=== PATIENT | female | born 1955 | race Caucasian/White ===

== ENCOUNTER → 2019-01-14 12:47 | Outpatient (CLI) | payer BC, OTHER, SELFPAY ==
--- NOTE | 2019-01-16 15:52 | PM.PFT.1 ---
Pulmonary Function Test Referral & Results Date Patient Seen: 01/14/19 Requesting provider: Rick Lezama Indication: J45.40 Results: The spirometry demonstrates an FVC of 2.83 L which is 95% of predicted. The FEV1 was measured at 2.16 L which is 94% of predicted. The FEV1/FVC ratio was 76 which is 99% of predicted. Following the administration of bronchodilator there was no appreciable change to above normal numbers. Lung volumes show an SVC of 2.74 L which is 97% of predicted. The diffusing capacity was measured at 23.93 which is 111% of predicted. The maximum voluntary ventilation was slightly reduced Interpretation: This study demonstrates normal pulmonary function
== END ==
PROVIDERS: Visit Provider Nurse Practitioner Family
DX: J45.40 Moderate persistent asthma, uncomplicated (principal); H93.11 Tinnitus, right ear
CPT/HCPCS: 94060; 94726; 94729

== ENCOUNTER → 2019-03-10 12:23 | Outpatient (CLI) | payer BC, OTHER, SELFPAY ==
--- NOTE | 2019-03-10 | DI.MG.S_ITS ---
BILATERAL DIGITAL DIAGNOSTIC MAMMOGRAM 3D/2D: 03/10/2019 CLINICAL: Left breast discomfort. Comparison is made to exams dated: 11/26/2014 localization, 11/01/2014 stereotactic biopsy, 10/27/2014 mammogram, and 10/18/2014 mammogram - [facility]. There are scattered fibroglandular elements in both breasts. There is a surgical clip in the left breast central to the nipple anterior depth. This correlates with surgery. There is architectural distortion, a post-surgical scar, and trabecular thickening associated with the surgical clip. No other significant masses, calcifications, or other findings are seen in either breast. IMPRESSION: INCOMPLETE: NEEDS ADDITIONAL IMAGING EVALUATION There is no abnormality seen in the left breast to correspond with the pain in the upper outer quadrant, however, ultrasound is recommended. This exam was interpreted at Station ID: [id number]. NOTE: For mammograms, a report in lay terms will be sent to the patient. Approximately 15% of breast malignancies will not be visualized mammographically. In the management of a palpable breast mass, a negative mammogram must not discourage biopsy of a clinically suspicious lesion. Electronically Signed By: Jaycob [email or web address]/[email or web address]:03/10/2019 13:36:04 ACR BI-RADS Category 0: Incomplete [id number]
--- NOTE | 2019-03-10 | DI.US.S_ITS ---
LIMITED ULTRASOUND OF LEFT BREAST: 03/10/2019 CLINICAL: Lt breast discomfort. Comparison is made to exams dated: 03/10/2019 mammogram - [facility], 10/27/2014 mammogram, 11/26/2014 specimen, 11/26/2014 localization, and 10/18/2014 mammogram - [facility]. Real-time ultrasound of the left breast upper outer quadrant was performed on the area of interest. No discrete cystic or solid mass lesion identified in the area of breast discomfort. IMPRESSION: NEGATIVE There is no sonographic evidence of malignancy. There is no abnormality seen in the left breast to correspond with the area of clinical concern in the upper outer quadrant, however, clinical followup is recommended. A 1 year screening mammogram is recommended. This exam was interpreted at Station ID: [id number]. Electronically Signed By: Jaycob jiang/:03/10/2019 16:51:09 letter sent: Clinical Evaluation Ultrasound BI-RADS: 1 Negative
== END ==
PROVIDERS: PCP Specialist; Visit Provider Specialist
DX: R92.8 Other abnormal and inconclusive findings on diagnostic imaging of breast (principal); N64.4 Mastodynia
CPT/HCPCS: 76642; 77066; G0279